=== PATIENT | female | born 1995 | race Two or more races ===

== ENCOUNTER 2022-02-22 00:09 | Emergency (ER) | payer BC, OTHER ==
[~2022-02-22] VITALS: Ht 152.4 cm; Wt 79.4 kg
[2022-02-22 00:59] LABS: Urine Bacteria FEW /hpf (None Seen); Urine Blood 3+ /uL (Negative); Urine Specific Gravity 1.006 (1.001-1.035); Urine WBC 2 /hpf (0 - 5)
[2022-02-22 01:15] LABS: Basophils # (auto) 0.1 10 ^3/uL (0-0.2); Basophils % (auto) 0.4 % (0.0-2.0); Eosinophils # (auto) 0.1 10 ^3/uL (0-0.8); Eosinophils % (auto) 0.7 % (0.0-7.0); Hematocrit 42.7 % (36.0-46.0); Hemoglobin 14.5 g/dL (12.2-16.2); Lymphocytes # (auto) 2.7 10 ^3/uL (0.4-5.4); Lymphocytes % (auto) 21.5 % (10.0-50.0); Mean Corpuscular Hemoglobin 31.5 pg (28.0-32.0); Mean Corpuscular Hgb Conc. 34.1 g/dL (32.0-36.0); Mean Corpuscular Volume 92.4 fL (80.0-100.0); Monocytes # (auto) 0.7 10 ^3/uL (0-1.3); Monocytes % (auto) 5.6 % (0.0-12.0); Neutrophils # (auto) 9.1 10 ^3/uL (1.6-8.6); Neutrophils % (auto) 71.8 % (37.0-80.0); Red Blood Cells 4.62 10^6/uL (4.0-5.20); White Blood Cell 12.7 10^3/uL (4.4-10.8)
[2022-02-22 01:34] LABS: BUN/Creatinine Ratio 13.4; Potassium 3.6 mmol/L (3.5-5.1)
[2022-02-22 01:35] LABS: Albumin 3.8 g/dL (3.4-5.0); Calcium 8.9 mg/dL (8.5-10.1)
[2022-02-22 01:38] LABS: Bilirubin, Total 0.2 mg/dL (0.2-1.0); Total Protein 7.7 g/dL (6.4-8.2)
[2022-02-22 04:50] VITALS: BP 148/82
== END 2022-02-22 04:50 | disposition home or self-care (01) ==
LOC: ER 00:09
DX: O20.0 Threatened abortion (principal); Z3A.01 Less than 8 weeks gestation of pregnancy
CPT/HCPCS: 36415; 80053; 81001; 84702; 85025

== ENCOUNTER 2022-06-20 19:54 | Observation (INO) | payer BC ==
[~2022-06-20] VITALS: Ht 152.4 cm; Wt 104.5 kg
[2022-06-20 20:23] LABS: Basophils # (auto) 0 10 ^3/uL (0-0.2); Basophils % (auto) 0.3 % (0.0-2.0); Eosinophils # (auto) 0.1 10 ^3/uL (0-0.8); Eosinophils % (auto) 0.6 % (0.0-7.0); Hematocrit 41.9 % (36.0-46.0); Hemoglobin 14.3 g/dL (12.2-16.2); Lymphocytes # (auto) 2.4 10 ^3/uL (0.4-5.4); Lymphocytes % (auto) 16.5 % (10.0-50.0); Mean Corpuscular Hemoglobin 32.9 pg (28.0-32.0); Mean Corpuscular Hgb Conc. 34.2 g/dL (32.0-36.0); Mean Corpuscular Volume 96.2 fL (80.0-100.0); Monocytes # (auto) 0.8 10 ^3/uL (0-1.3); Monocytes % (auto) 5.6 % (0.0-12.0); Red Blood Cells 4.35 10^6/uL (4.0-5.20); Red Cell Distribution Width 13.5 % (11.8-14.3); White Blood Cell 14.3 10^3/uL (4.4-10.8)
[2022-06-20 20:44] LABS: Albumin 2.8 g/dL (3.4-5.0); Calcium 8.9 mg/dL (8.5-10.1); Potassium 3.6 mmol/L (3.5-5.1)
[2022-06-20 20:47] LABS: BUN/Creatinine Ratio 13.4; Bilirubin, Total 0.2 mg/dL (0.2-1.0); Total Protein 7.4 g/dL (6.4-8.2)
[2022-06-20] MEDS ORDERED: LIDOCAINE VISCOUS 2% 15ML UD PO ONE (21:30)
[2022-06-20] MEDS ORDERED: ONDANSETRON ODT 4 MG TAB PO ONE (21:30)
[2022-06-20] MEDS ORDERED: ALUM & MAG HYDROX-SIMETH LIQ(MAALOX) 30 ML PO ONE (21:30)
[2022-06-20 23:31] VITALS: BP 134/70
[2022-06-21] MEDS ORDERED: PREN1TAB71 PO (00:38)
[2022-06-21] MEDS ORDERED: ASPI-543 PO (00:38)
[2022-06-21 01:07] LABS: Urine Amorphous Crystal MANY /hpf (None Seen); Urine Bacteria FEW /hpf (None Seen); Urine Blood Negative /uL (Negative); Urine Mucus FEW (None Seen); Urine Specific Gravity 1.032 (1.001-1.035); Urine WBC 4 /hpf (0 - 5)
== END 2022-06-21 01:32 | disposition home or self-care (01) ==
LOC: ER 19:56 → LDRP 23:33
PROVIDERS: ADMIT Obstetrics & Gynecology Obstetrics; ATTEND Obstetrics & Gynecology Obstetrics
DX: O99.612 Diseases of the digestive system complicating pregnancy, second trimester (principal); K29.00 Acute gastritis without bleeding; K21.9 Gastro-esophageal reflux disease without esophagitis; Z3A.24 24 weeks gestation of pregnancy
CPT/HCPCS: 36415; 59025; 76805; 80053; 81001; 81002; 83690; 85025; 94760; 99284; G0378; Q0162

== ENCOUNTER → 2022-07-06 | Outpatient (CLI) | payer BC ==
[~2022-07-06] MED LIST: ASPI-543 PO; PREN1TAB71 PO
== END | disposition home or self-care (01) ==
LOC: LAB 07:29
PROVIDERS: ATTEND Obstetrics & Gynecology Obstetrics
DX: O99.810 Abnormal glucose complicating pregnancy (principal); Z3A.00 Weeks of gestation of pregnancy not specified
CPT/HCPCS: 82951

== ENCOUNTER 2022-08-09 08:21 | Observation (INO) | payer BC | END 2022-08-09 17:10 | disposition home or self-care (01) | LOC: LDRP 14:45 → UNDOADMOB 14:46 | PROVIDERS: ADMIT Obstetrics & Gynecology; ATTEND Obstetrics & Gynecology | DX: O24.419 Gestational diabetes mellitus in pregnancy, unspecified control (principal); Z3A.30 30 weeks gestation of pregnancy | CPT/HCPCS: 59025; 76818; 81002; 82948; 82962; G0378 ==

== ENCOUNTER 2022-08-19 07:09 | Observation (INO) | payer BC | END 2022-08-19 10:24 | disposition home or self-care (01) | LOC: UNDOADMOB 09:04 → LDRP 09:04 → UNDODISOB 10:24 | PROVIDERS: ADMIT Obstetrics & Gynecology; ATTEND Obstetrics & Gynecology | DX: O24.419 Gestational diabetes mellitus in pregnancy, unspecified control (principal); Z3A.32 32 weeks gestation of pregnancy | CPT/HCPCS: 59025; 76818; 81002; 82948; 82962; 94760; G0378 ==

== ENCOUNTER 2022-08-25 09:02 | Observation (INO) | payer BC | END 2022-08-25 10:36 | disposition home or self-care (01) | LOC: LDRP 09:02 → UNDOADMOB 09:04 | PROVIDERS: ADMIT Obstetrics & Gynecology; ATTEND Obstetrics & Gynecology | DX: O24.419 Gestational diabetes mellitus in pregnancy, unspecified control (principal); Z3A.33 33 weeks gestation of pregnancy | CPT/HCPCS: 59025; 76818; 81002; 82948; 82962; 94760; G0378 ==

== ENCOUNTER 2022-08-30 08:14 | Observation (INO) | payer BC ==
[~2022-08-30 08:14] MED LIST changes: -ASPI-543 PO
== END 2022-08-30 12:00 | disposition home or self-care (01) ==
LOC: LDRP 10:13 → UNDOADMOB 10:13 → LDRP 11:29 → UNDODISOB 12:00
PROVIDERS: ADMIT Obstetrics & Gynecology; ATTEND Obstetrics & Gynecology
DX: O24.419 Gestational diabetes mellitus in pregnancy, unspecified control (principal); Z3A.33 33 weeks gestation of pregnancy
CPT/HCPCS: 59025; 76818; 81002; 82948; 82962; 94760; G0378

== ENCOUNTER 2022-09-02 08:44 | Observation (INO) | payer BC | END 2022-09-02 10:14 | disposition home or self-care (01) | LOC: LDRP 08:44 → UNDOADMOB 08:44 → LDRP 09:07 | PROVIDERS: ADMIT Obstetrics & Gynecology; ATTEND Obstetrics & Gynecology | DX: O24.419 Gestational diabetes mellitus in pregnancy, unspecified control (principal); Z3A.34 34 weeks gestation of pregnancy | CPT/HCPCS: 59025; 76818; 81002; 82948; 82962; G0378 ==

== ENCOUNTER 2022-09-07 09:00 | Observation (INO) | payer BC | END 2022-09-07 14:48 | disposition home or self-care (01) | LOC: UNDOADMOB 13:12 → LDRP 13:12 | PROVIDERS: ADMIT Obstetrics & Gynecology; ATTEND Obstetrics & Gynecology | DX: O24.419 Gestational diabetes mellitus in pregnancy, unspecified control (principal); Z3A.34 34 weeks gestation of pregnancy | CPT/HCPCS: 59025; 76818; 81002; 82948; 82962; 94760; G0378 ==

== ENCOUNTER → 2022-09-13 | Outpatient (CLI) | payer BC ==
[2022-09-13 09:01] LABS: Basophils # (auto) 0 10 ^3/uL (0-0.2); Basophils % (auto) 0.4 % (0.0-2.0); Eosinophils # (auto) 0.1 10 ^3/uL (0-0.8); Eosinophils % (auto) 1.2 % (0.0-7.0); Hematocrit 44.1 % (36.0-46.0); Hemoglobin 14.9 g/dL (12.2-16.2); Lymphocytes # (auto) 1.7 10 ^3/uL (0.4-5.4); Lymphocytes % (auto) 17.6 % (10.0-50.0); Mean Corpuscular Hemoglobin 32.5 pg (28.0-32.0); Mean Corpuscular Hgb Conc. 33.8 g/dL (32.0-36.0); Mean Corpuscular Volume 96.2 fL (80.0-100.0); Monocytes # (auto) 0.7 10 ^3/uL (0-1.3); Monocytes % (auto) 7.1 % (0.0-12.0); Neutrophils % (auto) 73.7 % (37.0-80.0); Red Blood Cells 4.59 10^6/uL (4.0-5.20); Red Cell Distribution Width 12.8 % (11.8-14.3); White Blood Cell 9.6 10^3/uL (4.4-10.8)
[2022-09-14 07:07] LABS: RPR Non Reactive (Non Reactive)
== END | disposition home or self-care (01) ==
LOC: LAB 08:45
PROVIDERS: ATTEND Obstetrics & Gynecology
DX: Z34.00 Encounter for supervision of normal first pregnancy, unspecified trimester (principal); Z3A.00 Weeks of gestation of pregnancy not specified
CPT/HCPCS: 36415; 84112; 85025; 86592

== ENCOUNTER 2022-09-14 13:06 | Observation (INO) | payer BC | END 2022-09-14 15:04 | disposition home or self-care (01) | LOC: UNDOADMOB 13:06 → LDRP 13:06 | PROVIDERS: ADMIT Obstetrics & Gynecology; ATTEND Obstetrics & Gynecology | DX: O24.419 Gestational diabetes mellitus in pregnancy, unspecified control (principal); O32.1XX0 Maternal care for breech presentation, not applicable or unspecified; Z3A.35 35 weeks gestation of pregnancy | CPT/HCPCS: 59025; 76818; 81002; 82948; 82962; 94760; G0378 ==

== ENCOUNTER 2022-09-21 14:52 | Observation (INO) | payer BC | END 2022-09-21 16:01 | disposition home or self-care (01) | LOC: LDRP 14:52 → UNDOADMOB 14:52 → LDRP 14:55 | PROVIDERS: ADMIT Obstetrics & Gynecology; ATTEND Obstetrics & Gynecology | DX: O24.419 Gestational diabetes mellitus in pregnancy, unspecified control (principal); Z3A.36 36 weeks gestation of pregnancy | CPT/HCPCS: 59025; 76818; 81002; 82948; 82962; G0378 ==

== ENCOUNTER 2022-09-28 14:49 | Observation (INO) | payer BC | END 2022-09-29 12:21 | disposition home or self-care (01) | LOC: LDRP 09-29 11:01 → UNDOADMOB 09-29 11:01 → LDRP 09-29 11:13 | PROVIDERS: ADMIT Obstetrics & Gynecology; ATTEND Obstetrics & Gynecology | DX: O24.419 Gestational diabetes mellitus in pregnancy, unspecified control (principal); O32.1XX0 Maternal care for breech presentation, not applicable or unspecified; Z3A.38 38 weeks gestation of pregnancy | CPT/HCPCS: 59025; 76818; 81002; 82948; 82962; 94760; G0378 ==

== ENCOUNTER 2022-10-01 09:44 | Observation (INO) | payer BC | END 2022-10-01 12:00 | disposition home or self-care (01) | LOC: LDRP 09:44 | PROVIDERS: ADMIT Obstetrics & Gynecology; ATTEND Obstetrics & Gynecology | DX: O21.0 Mild hyperemesis gravidarum (principal); O24.419 Gestational diabetes mellitus in pregnancy, unspecified control; O26.853 Spotting complicating pregnancy, third trimester; Z3A.38 38 weeks gestation of pregnancy | CPT/HCPCS: 59025; 81002; 82948; 82962; 94760; G0378 ==

== ENCOUNTER 2022-10-05 11:51 | Inpatient (IN) | payer BC ==
[~2022-10-05] VITALS: Ht 152.4 cm; Wt 105.7 kg
[2022-10-05] MEDS ORDERED: LACTATED RINGER'S 1,000 ML IV SCH (16:00)
[2022-10-05] MEDS ORDERED: LACTATED RINGER'S 1,000 ML IV ONE (16:00)
[2022-10-05] MEDS ORDERED: ceFAZolin 2 GM in D5W 5% 100 ML IV ONE (16:00)
[2022-10-05] MEDS ORDERED: CEPH500T PO (16:05)
[2022-10-05] MEDS ORDERED: DOCU-94 PO (16:05)
[2022-10-05] MEDS ORDERED: HYDR-4902 PO (16:05)
[2022-10-05] MEDS ORDERED: IBUP800T27 PO (16:05)
[2022-10-05 16:26] LABS: Urine Bacteria FEW /hpf (None Seen); Urine Blood Negative /uL (Negative); Urine Specific Gravity 1.005 (1.001-1.035); Urine WBC 1 /hpf (0 - 5)
[2022-10-05 16:27] LABS: Basophils # (auto) 0 10 ^3/uL (0-0.2); Basophils % (auto) 0.4 % (0.0-2.0); Eosinophils # (auto) 0 10 ^3/uL (0-0.8); Eosinophils % (auto) 0.5 % (0.0-7.0); Hematocrit 43.3 % (36.0-46.0); Hemoglobin 15.1 g/dL (12.2-16.2); Lymphocytes # (auto) 2.1 10 ^3/uL (0.4-5.4); Mean Corpuscular Hgb Conc. 34.9 g/dL (32.0-36.0); Mean Corpuscular Volume 94.6 fL (80.0-100.0); Monocytes # (auto) 0.6 10 ^3/uL (0-1.3); Neutrophils # (auto) 6.8 10 ^3/uL (1.6-8.6); Neutrophils % (auto) 71.1 % (37.0-80.0); Nucleated Red Blood Cells % 0.2 %; Red Blood Cells 4.58 10^6/uL (4.0-5.20); Red Cell Distribution Width 12.6 % (11.8-14.3); White Blood Cell 9.5 10^3/uL (4.4-10.8)
[2022-10-05 16:38] LABS: Albumin 2.6 g/dL (3.4-5.0); Calcium 8.9 mg/dL (8.5-10.1); Potassium 4.5 mmol/L (3.5-5.1)
[2022-10-05 16:39] LABS: Alcohol, Urine < 3.0 mg/dL (0-10); Amphetamine Screen, Urine NEGATIVE (NEGATIVE); Barbiturate Scree,Urine NEGATIVE (NEGATIVE); Benzodiazephine Screen, Urine NEGATIVE (NEGATIVE); Cannabinoid Screen, Urine NEGATIVE (NEGATIVE); Cocaine Screen, Urine NEGATIVE (NEGATIVE); Opiate Scree,Urine NEGATIVE (NEGATIVE); Phencyclidine Screen, Urine NEGATIVE (NEGATIVE)
[2022-10-05 16:43] LABS: BUN/Creatinine Ratio 16.9; Bilirubin, Total 0.1 mg/dL (0.2-1.0); Total Protein 6.8 g/dL (6.4-8.2)
[2022-10-05 16:49] LABS: INR 0.86 (0.9-1.15); Partial Thromboplastin Time 27.7 sec (24.6-33.4)
[2022-10-05] MEDS ORDERED: TETRACAINE 1% INJ 2 ML VIAL IJ ONE (16:49)
[2022-10-05] MEDS ORDERED: MORPHINE SULF PF 5 MG/10 ML VIAL ONE (16:51)
[2022-10-05] MEDS ORDERED: SODIUM CITR/CITRIC ACID ORAL SOLN 30 ML PO SCH (17:00)
[2022-10-05] MEDS ORDERED: GUM (CHEWING) 1 GUM CHEW CHEW ONE (18:00)
[2022-10-05] MEDS ORDERED: ONDANSETRON HCL 4 MG/2 ML VIAL IV PRN ×2 (18:00→20:00)
[2022-10-05] MEDS ORDERED: LACT. RINGERS/OXYTOCIN 20UNITS 1,000 ML IV ONE (18:00)
[2022-10-05] MEDS ORDERED: ceFAZolin 1GM/50ML 50 ML IV SCH (18:00)
[2022-10-05] MEDS ORDERED: MIDAZOLAM HCL 2MG/2ML 2ml VIAL (1mg/ml) ONE (18:56)
[2022-10-05] MEDS ORDERED: oxyTOCIN 10 UNIT/ML 10ML VIAL ONE (19:38)
[2022-10-05] MEDS ORDERED: ePHEDrine SULFATE 50 MG/ML AMP ONE (19:38)
[2022-10-05] MEDS ORDERED: ONDANSETRON HCL 4 MG/2 ML VIAL ONE (19:39)
[2022-10-05] MEDS ORDERED: diphenhdrAMINE HCL 50 MG/1 ML VL IV PRN (20:00)
[2022-10-05] MEDS ORDERED: DexAMETHasone SOD PHOS 10MG/1ML VIAL INJ IV PRN (20:00)
[2022-10-05] MEDS ORDERED: HYDROmorphone HCL 2 MG/ML VL/or syr IV PRN (20:00)
[2022-10-05] MEDS ORDERED: NALOXONE HCL 0.4 MG/ML VIAL IV PRN (20:00)
[2022-10-05] MEDS ORDERED: NALBUPHINE HCL 10 MG/1ml INJECTION SUBCUT ONE (20:00)
[2022-10-05] MEDS ORDERED: KETOROLAC TROMETH 30 MG/ML 1ML VIAL IV PRN (20:00)
[2022-10-05 21:00] VITALS: BP 131/83
[2022-10-05 22:00] VITALS: BP 130/75
[2022-10-05] MEDS: ACETAMINOPHEN IV 1000 MG/100ML (10MG/ML) IV SCH (22:01)
[2022-10-05 23:00] VITALS: BP 119/69
[2022-10-05 23:50] LABS: Basophils # (auto) 0 10 ^3/uL (0-0.2); Basophils % (auto) 0.2 % (0.0-2.0); Eosinophils # (auto) 0 10 ^3/uL (0-0.8); Eosinophils % (auto) 0.1 % (0.0-7.0); Hematocrit 41.1 % (36.0-46.0); Hemoglobin 13.9 g/dL (12.2-16.2); Lymphocytes # (auto) 1.3 10 ^3/uL (0.4-5.4); Lymphocytes % (auto) 8.6 % (10.0-50.0); Mean Corpuscular Hemoglobin 32.4 pg (28.0-32.0); Mean Corpuscular Hgb Conc. 33.9 g/dL (32.0-36.0); Mean Corpuscular Volume 95.7 fL (80.0-100.0); Monocytes # (auto) 0.6 10 ^3/uL (0-1.3); Monocytes % (auto) 4.2 % (0.0-12.0); Neutrophils # (auto) 13.1 10 ^3/uL (1.6-8.6); Neutrophils % (auto) 86.9 % (37.0-80.0); Nucleated Red Blood Cells % 0.1 %; Red Cell Distribution Width 12.5 % (11.8-14.3); White Blood Cell 15.1 10^3/uL (4.4-10.8)
[2022-10-06] VITALS (19 sets, daily range): BP systolic 95–120; BP diastolic 54–78
[2022-10-06] MEDS ORDERED: ceFAZolin 1GM/50ML 50 ML IV SCH (02:00)
[2022-10-06] MEDS: ACETAMINOPHEN IV 1000 MG/100ML (10MG/ML) IV SCH ×2 (05:46→14:00)
[2022-10-06 08:07] LABS: RPR Non Reactive (Non Reactive)
[2022-10-06 08:28] LABS: Basophils # (auto) 0 10 ^3/uL (0-0.2); Basophils % (auto) 0.2 % (0.0-2.0); Eosinophils # (auto) 0 10 ^3/uL (0-0.8); Eosinophils % (auto) 0.2 % (0.0-7.0); Hematocrit 37.6 % (36.0-46.0); Lymphocytes # (auto) 1.7 10 ^3/uL (0.4-5.4); Lymphocytes % (auto) 15.6 % (10.0-50.0); Mean Corpuscular Hemoglobin 33.2 pg (28.0-32.0); Mean Corpuscular Hgb Conc. 34.6 g/dL (32.0-36.0); Mean Corpuscular Volume 96.1 fL (80.0-100.0); Monocytes # (auto) 0.7 10 ^3/uL (0-1.3); Monocytes % (auto) 6.6 % (0.0-12.0); Neutrophils # (auto) 8.5 10 ^3/uL (1.6-8.6); Neutrophils % (auto) 77.4 % (37.0-80.0); Red Blood Cells 3.91 10^6/uL (4.0-5.20); Red Cell Distribution Width 12.6 % (11.8-14.3)
[2022-10-06] MEDS: ceFAZolin 1GM/50ML 50 ML IV SCH ×2 (12:25→20:03)
[2022-10-06] MEDS ORDERED: HYDROcodone-ACET 5/325MG TAB PO PRN (18:30)
[2022-10-06] MEDS ORDERED: BISACODYL 10 MG RECT SUPP PR PRN (18:30)
[2022-10-06] MEDS: SIMETHICONE 80 MG CHEWABLE TABLET PO SCH (22:18)
[2022-10-06] MEDS: DOCUSATE SOD 100 MG CAP PO SCH (22:18)
[2022-10-06] MEDS: IBUPROFEN 800 MG TAB PO PRN (23:20)
[2022-10-07 03:00] VITALS: BP 106/71
[2022-10-07] MEDS: SIMETHICONE 80 MG CHEWABLE TABLET PO SCH ×4 (05:32→22:02)
[2022-10-07 06:42] VITALS: BP 124/84
[2022-10-07] MEDS ORDERED: DOCUSATE CALCIUM 240 MG CAP PO SCH (10:00)
[2022-10-07] MEDS: HYDROcodone-ACET 5/325MG TAB PO PRN ×2 (10:31→16:12)
[2022-10-07] MEDS: DOCUSATE SOD 100 MG CAP PO SCH ×2 (10:33→22:02)
[2022-10-07 11:00] VITALS: BP 133/87
[2022-10-07 15:00] VITALS: BP 138/73
[2022-10-07] MEDS: IBUPROFEN 800 MG TAB PO PRN (15:17)
[2022-10-07 18:48] VITALS: BP 124/77
[2022-10-07] MEDS ORDERED: TETANUS-DIPTH-ACEL PERTUSSIS 0.5ML SYR Tdap IM ONE (19:30)
[2022-10-07 22:36] VITALS: BP 130/78
[2022-10-08] MEDS: HYDROcodone-ACET 5/325MG TAB PO PRN (02:32)
[2022-10-08 02:51] VITALS: BP 119/78
[2022-10-08] MEDS: SIMETHICONE 80 MG CHEWABLE TABLET PO SCH (05:34)
[2022-10-08 07:30] VITALS: BP 117/74
[2022-10-08] MEDS: IBUPROFEN 800 MG TAB PO PRN (07:50)
== END 2022-10-08 10:02 | disposition home or self-care (01) | DRG 788 ==
LOC: LDRP 14:00 → UNDOADMOB 15:10 → LDRP 15:10 → OBSVTOIN 16:02 → LDRP 19:15
PROVIDERS: ADMIT Obstetrics & Gynecology; ATTEND Obstetrics & Gynecology
PROC: 10D00Z1 Extraction of Products of Conception, Low, Open Approach (ICD-10-PCS; principal; 2022-10-05 18:04)
DX: O32.1XX0 Maternal care for breech presentation, not applicable or unspecified (principal); O24.429 Gestational diabetes mellitus in childbirth, unspecified control; E66.01 Morbid (severe) obesity due to excess calories; Z20.822 Contact with and (suspected) exposure to COVID-19; Z37.0 Single live birth; Z3A.38 38 weeks gestation of pregnancy
CPT/HCPCS: 36415; 59025; 76818; 80053; 80307; 81001; 81002; 82948; 82962; 85025; 85610; 85730; 86592; 86850; 86900; 86901; 87426; 90715; 94760; 94762; 96360; 96361; 96365; 96366; 96372; G0378; J0131; J0690; J1885; J2250; J2405; J2590; J7060